=== PATIENT | male | born 1970 | race Caucasian/White ===

== ENCOUNTER 2017-10-16 10:19 | Emergency (ER) | payer OTHER ==
--- NOTE | 2017-10-16 11:00 | EDM.PDOC ---
ED HPI GENERAL MEDICAL PROBLEM - General Chief Complaint: Gastrointestinal Problem Stated Complaint: CONSTIPATION Time Seen by Provider: 10/16/17 10:35 Source of Information: Reports: Patient History Limitations: Reports: No Limitations - History of Present Illness INITIAL COMMENTS - FREE TEXT/NARRATIVE: The patient presents with possible constipation. He says about a week ago he got drunk and after that he had diarrhea. He slowed his water intake. Then he had troubles going. He tried some magnesium citrate and he had some diarrhea. He had very little output. Now he feels bloated and he is taking ex-lax. He has no fever, chills, cough, chest pain, shortness of breath, nausea or vomiting. He has some dysuria. He still has his gallbladder and appendix. Onset: Gradual Duration: Week(s): (1) Location: Reports: Abdomen Quality: Reports: Other (Bloated) Severity: Mild Improves with: Reports: None Worsens with: Reports: None Associated Symptoms: Denies: Chest Pain, Fever/Chills, Headaches, Nausea/ Vomiting, Shortness of Breath Treatments TELEPHONIC RN: Reports: Other (see below) Other Treatments TELEPHONIC RN: ex lax, maalox lower abdomen Pain Score (Numeric/FACES): 1 - Related Data Allergies Allergy/AdvReac Type Severity Reaction Status Date / Time No Known Allergies Allergy Verified 10/16/17 10:38 Home Meds: Home Meds . [No Known Home Meds] 10/16/17 [History] Past Medical History - Past Health History Medical/Surgical History: Denies Medical/Surgical History Other Endocrine/Metabolic History: states was diagnosed "pre diabetic" Social & Family History - Family History Family Medical History: Noncontributory - Tobacco Use Smoking Status *Q: Current Some Day Smoker Years of Tobacco use: 15 Packs/Tins Daily: 0.1 - Caffeine Use Caffeine Use: Reports: Coffee - Recreational Drug Use Recreational Drug Use: No ED ROS GENERAL - Review of Systems Review Of Systems: See Below Constitutional: Reports: No Symptoms HEENT: Reports: No Symptoms Respiratory: Reports: No Symptoms Cardiovascular: Reports: No Symptoms Endocrine: Reports: No Symptoms GI/Abdominal: Reports: Abdominal Pain (Bloated), Diarrhea, Nausea, Vomiting : Reports: No Symptoms Musculoskeletal: Reports: No Symptoms ED EXAM, GI/ABD - Physical Exam Exam: See Below Exam Limited By: No Limitations General Appearance: Alert, No Apparent Distress Ears: Normal External Exam Nose: Normal Inspection Head: Atraumatic, Normocephalic Neck: Normal Inspection Respiratory/Chest: No Respiratory Distress, Lungs Clear, Normal Breath Sounds Cardiovascular: Regular Rate, Rhythm, No Edema, No Murmur GI/Abdominal Exam: Soft, Non-Tender, No Organomegaly, No Mass Extremities: Normal Inspection Course - Vital Signs Last Recorded V/S: Last Vital Signs Temp 97.5 F 10/16/17 10:28 Pulse 85 10/16/17 10:28 Resp 18 10/16/17 10:28 BP 132/79 10/16/17 10:28 Pulse Ox 97 10/16/17 10:28 - Orders/Labs/Meds Orders: Active Orders 24 hr Category Date Time Status Abdomen Series w Chest 1V [CR] Stat Exams 10/16/17 10:53 Taken Labs: Laboratory Tests 10/16/17 10/16/17 Range/Units 11:03 11:03 WBC 4.66 (4.23-9.07) K/mm3 RBC 4.97 (4.63-6.08) M/mm3 Hgb 15.9 (13.7-17.5) gm/L Hct 46.6 (40.1-51.0) % MCV 93.8 H (79.0-92.2) fl MCH 32.0 (25.7-32.2) pg MCHC 34.1 (32.2-35.5) g/dl RDW Std Deviation 45.1 H (35.1-43.9) fL Plt Count 195 (163-337) K/mm3 MPV 9.6 (9.4-12.3) fl Neut % (Auto) 52.7 (34.0-67.9) % Lymph % (Auto) 30.0 (21.8-53.1) % Knott % (Auto) 14.8 H (5.3-12.2) % Eos % (Auto) 1.9 (0.8-7.0) Baso % (Auto) 0.6 (0.1-1.2) % Neut # (Auto) 2.45 (1.78-5.38) K/mm3 Lymph # (Auto) 1.40 (1.32-3.57) K/mm3 Knott # (Auto) 0.69 (0.30-0.82) K/mm3 Eos # (Auto) 0.09 (0.04-0.54) K/mm3 Baso # (Auto) 0.03 (0.01-0.08) K/mm3 Sodium 138 (136-145) mEq/L Potassium 4.3 (3.5-5.1) mEq/L Chloride 101 (98-107) mEq/L Carbon Dioxide 30 (21-32) mEq/L Anion Gap 11.3 (5-15) BUN 13 (7-18) mg/dL Creatinine 1.1 (0.7-1.3) mg/dL Est Cr Clr Drug Dosing 88.42 mL/min Estimated GFR (MDRD) > 60 (>60) mL/min BUN/Creatinine Ratio 11.8 L (14-18) Glucose 140 H (74-106) mg/dL Calcium 8.7 (8.5-10.1) mg/dL Total Bilirubin 0.5 (0.2-1.0) mg/dL AST 28 (15-37) U/L ALT 68 H (16-63) U/L Alkaline Phosphatase 97 (46-116) U/L Total Protein 7.4 (6.4-8.2) g/dl Albumin 4.1 (3.4-5.0) g/dl Globulin 3.3 gm/dL Albumin/Globulin Ratio 1.2 (1-2) Lipase 165 (73-393) U/L - Re-Assessments/Exams Free Text/Narrative Re-Assessment/Exam: 10/16/17 11:01 I ordered labs and x-rays. 10/16/17 12:07 His CBC and CMP looks good. His x-rays do not show an free air or signs of obstruction. He has some nonspecific bowel gas pattern. I do not see much stool. I will have him stop the ex-lax and start with a bland diet and advance as tolerated. Departure - Departure Time of Disposition: 12:10 Disposition: Home, Self-Care 01 Condition: Good Clinical Impression: Abdominal pain Diarrhea Qualifiers: Diarrhea type: unspecified type Qualified Code(s): R19.7 - Diarrhea, unspecified - Discharge Information Referrals: PCP,None [Primary Care Provider] - Kaylie Hawkins PA [Physician [employer]] - 1 Week Forms: ED Department Discharge Additional Instructions: Drink plenty of fluids. Avoid the ex-lax and other meds like that. Start off with a bland diet and advance as tolerated. Please return if you are worse. - My Orders Last 24 Hours: My Active Orders 10/16/17 10:53 Abdomen Series w Chest 1V [CR] Stat - Assessment/Plan Last 24 Hours: My Active Orders 10/16/17 10:53 Abdomen Series w Chest 1V [CR] Stat
--- NOTE | 2017-10-18 08:31 | CR ---
Abdominal series: Frontal view of the chest was obtained as well as supine and upright views of the abdomen. Comparison: No prior exam. Heart size and mediastinum are normal. Lungs are clear. Bowel gas pattern appears normal. Calcifications are seen within the pelvis which are compatible with phleboliths. Bony structures are within normal limits for the patient's age. Impression: 1. Nothing acute is identified on abdominal series. Diagnostic code #2
== END 2017-10-16 12:17 | disposition home or self-care (01) ==
LOC: JD.ED 10:19
DX: R10.30 Lower abdominal pain, unspecified (principal); R19.7 Diarrhea, unspecified; F17.210 Nicotine dependence, cigarettes, uncomplicated
CPT/HCPCS: 36415; 74022; 74022-26; 80053; 83690; 85025; 99283; 99284